=== PATIENT | male | born 1975 | race African-American/Black ===

== ENCOUNTER 2016-07-26 09:52 | Emergency (ER) | payer OTHER ==
--- NOTE | ~2016-07-26 | CT23 ---
[facility] A Service of [facility] & [facility] RADIOLOGY TEXT RESULTS PATIENT: THU NORRIS LOCATION: [facility] : 79 UNIT #: [id number] AGE: [address]: James Cooper MD SEX: M ORDER DR: [id number] [facility] [address] [place], [place] [address] [id number] E MR#: [id number] Acc #: [id number] NAME: THU NORRIS : 1975 SEX: M STUDY DATE/TIME: 07/26/2016 9:29 UNIT: [facility] ROOM: STUDY DESCRIPTION: CT Angio Neck Attending Physician: James Cooper M.D. Ordering Physician: James Cooper M.D. Primary Care Physician: Rebeka Garza A.P.R.N. MEDICAL IMAGING REPORT This report is preliminary unless electronic signature is present EXAM CT angiogram neck FINDINGS Please see CT angiogram head for results. Dictated by... Julee Cruz M.D. THIS IS AN ELECTRONICALLY VERIFIED REPORT Julee Cruz M.D. at 07/26/2016 2:49 PM Maria Fernanda TD: 07/26/2016 13:19 JOB #: [id number] MEDICAL IMAGING REPORT Page 1 of 1 COPY
--- NOTE | ~2016-07-26 | CT71 ---
[facility] A Service of [facility] RADIOLOGY TEXT RESULTS PATIENT: THU NORRIS LOCATION: [facility] : 77 UNIT #: [id number] AGE: [address]: James Cooper MD SEX: M ORDER DR: [id number] [place] [id number] [facility]. [place], [place] [address] [id number] E MR#: [id number] Acc #: [id number] NAME: THU NORRIS : 1975 SEX: M STUDY DATE/TIME: 07/26/2016 9:15 UNIT: [facility] ROOM: STUDY DESCRIPTION: CT Head Wo Contrast Attending Physician: James Cooper M.D. Ordering Physician: James Cooper M.D. Primary Care Physician: Rebeka Garza A.P.R.N. MEDICAL IMAGING REPORT This report is preliminary unless electronic signature is present EXAM CT scan of the head without contrast INDICATION Unsteady gait, blurred vision, dizziness and headache since yesterday. TECHNIQUE CT of the head was performed without contrast. This CT examination was performed with one or more of the following radiation dose reduction techniques: automatic exposure control, adjustment of mA and/or kV according to patient size, and iterative reconstruction. COMPARISON 06/20/2016. FINDINGS There is no intracranial hemorrhage, acute cortical based infarction, focal mass lesion, or hydrocephalus. The included orbits and paranasal sinuses are unremarkable. The bone windows are unremarkable. IMPRESSION No acute intracranial abnormality. Dictated by... Agustín Angelo M.D. THIS IS AN ELECTRONICALLY VERIFIED REPORT Agustín Angelo M.D. at 07/26/2016 4:29 PM ARS/mjs [facility] A Service [facility] RADIOLOGY TEXT RESULTS PATIENT: THU NORRIS LOCATION: [facility] : 77 UNIT #: [id number] AGE: [address]: James Cooper MD SEX: M ORDER DR: TD: 07/26/2016 10:34 JOB #: [id number] MEDICAL IMAGING REPORT Page 1 of 1 COPY
--- NOTE | ~2016-07-26 | CT17 ---
[facility] A Service of [facility] & [facility] RADIOLOGY TEXT RESULTS PATIENT: THU NORRIS LOCATION: [facility] : 79 UNIT #: [id number] AGE: [address]: James Cooper MD SEX: M ORDER DR: [id number] [facility] [address] [place], [place] [address] [id number] E MR#: [id number] Acc #: [id number] NAME: THU NORRIS : 1975 SEX: M STUDY DATE/TIME: 07/26/2016 9:29 UNIT: [facility] ROOM: STUDY DESCRIPTION: CT Angio Head Attending Physician: James Cooper M.D. Ordering Physician: James Cooper M.D. Primary Care Physician: Rebeka Garza A.P.R.N. MEDICAL IMAGING REPORT This report is preliminary unless electronic signature is present EXAM CT angiogram of the head and neck HISTORY Unsteady gait, blurred vision, dizziness, headache since 07/25/2016, hypertension, and elevated cholesterol. No cancer history. COMMENT CT angiography of the head and neck vessels performed during the intervenous administration of 100 mL of Isovue-370 with imaging acquired in the axial plane, followed by multiple reconstructed and reformatted images for the purpose of 3-D CT angiography of the head and neck vessels. The head CT comparison is from 07/26/2016. CT ANGIOGRAM NECK: Study is limited by patient's morbid obesity and suboptimal contrast opacification. Bovine origin of left common carotid artery. Study is limited for evaluation for great vessel disease because of the amount of artifact. There is a large amount of beam-hardening from the venous contrast inflow with the associated beam-hardening related to the patient's size. Bilaterally, the proximal common carotid arteries are not well seen, worse on the right than the left. Evaluation of the visualized right carotid system shows 0% stenosis by NASCET criteria of the right carotid bifurcation. The right carotid siphon is widely patent. Evaluation of the visualized left carotid system shows 0% stenosis by NASCET criteria of the left carotid bifurcation. There may be some mild STS. [facility] A Service of [facility] & [facility] RADIOLOGY TEXT RESULTS PATIENT: THU NORRIS [id number] [birth year] UNIT #: [id number] AGE: [address]: James Cooper MD SEX: M ORDER DR: anna. There is no gross abnormality of the left common carotid artery, though the proximal left common carotid artery is poorly seen. The left carotid siphon is widely patent. Evaluation of the vertebrals similarly limited by the patient's size, such that the proximal vertebral arteries, including their origins, are obscured. The distal 2/3 of the right vertebral artery in the neck patent. Distal 2/3 of the left vertebral artery in the neck patent. Both vertebral arteries are patent intracranially. The proximal right and left vertebral arteries cannot be evaluated accurately because of the shoulder artifact. Evaluation of the intracranial circulation shows no intracranial vascular cutoff. Again, the study is technically quite limited by the contrast opacification and morbid obesity. This study is not adequate to assess for vascular irregularity. There is a focus of contrast outpouching at the origin of the right superior cerebellar artery, about 2 mm in dimension, which might be a small aneurysm versus an infundibular type structure. I suspect there is a tiny right posterior communicator. No definite left posterior communicator or anterior communicator seen. The dural venous sinuses are patent. IMPRESSION 1. This is significantly technically limited by the patient's morbid obesity and suboptimal contrast opacification. 2. Allowing for this, by NASCET criteria, there does not appear to be hemodynamically significant narrowing of either carotid bifurcation, and both vertebral arteries are patent. Unfortunately, because of the patient's size, the proximal vessels in the neck are essentially obscured by artifact. This includes the bilateral common carotid arteries proximally, as well as the proximal vertebral arteries bilaterally. The vertebral artery origins cannot be evaluated. 3. There is no definite intracranial vascular cutoff. The study would be insensitive for areas of stenosis because of the limited quality of the exam. There is about a 2-mm focus of contrast outpouching at the origin of the right superior cerebellar artery, which might be a small aneurysm. If the patient is a candidate, it could be further characterized with an MR angiogram. I believe the patient has a tiny right posterior communicator, but no left posterior communicator or anterior communicator is seen. STAT * RESULT Dictated by... Julee Cruz M.D. THIS IS AN ELECTRONICALLY VERIFIED REPORT Julee Cruz M.D. at 07/26/2016 2:49 PM [facility] A Service of [facility] & [facility] / [facility] RADIOLOGY TEXT RESULTS PATIENT: THU NORRIS LOCATION: [facility] : 79 UNIT #: [id number] AGE: [address]: James Cooper MD SEX: M ORDER DR: Maria Fernanda TD: 07/26/2016 13:18 JOB #: [id number] MEDICAL IMAGING REPORT Page 1 of 1 COPY
--- NOTE | ~2016-07-26 | EKG ---
PATIENT: THU NORRIS UNIT #: [id number] Ventricular Rate: 82 BPM Atrial Rate: 82 BPM P-R Interval: 190 ms QRS Duration: 90 ms Q-T Interval: 414 ms QTC Calculation(Bezet): 483 ms P Birchleaf: 68 degrees Calculated R Birchleaf: 58 degrees Calculated T Birchleaf: 4 degrees Diagnosis Line: Normal sinus rhythm Diagnosis Line: Nonspecific T wave abnormality Diagnosis Line: Prolonged QT Diagnosis Line: Abnormal ECG Diagnosis Line: When compared with ECG of 14-JAN-2015 20:38, Diagnosis Line: No significant change was found Diagnosis Line: Confirmed by EMILY CEE MD ([id number]) on 07/26/2016 Diagnosis Line: 10:20:28 PM INTERPRETING MD: JAYE RODAS
[2016-07-26 08:42] LABS: BASOPHIL% 0.5 % (0-2.5); EOSINOPHIL# 0.1 X10e3 (0-0.7); EOSINOPHIL% 1.5 % (0.0-7.0); HEMATOCRIT 41.8 % (38.0-50.0); HEMOGLOBIN 14.1 gm/dL (13.0-16.0); LYMPHOCYTE# 2.4 X10e3 (1.0-3.5); LYMPHOCYTE% 31.3 % (17.0-45.0); MEAN CELL VOLUME 88.5 FL (83-96); MEAN CORPUSCULAR HEMOGLOBIN 29.9 PG (28-34); MEAN CORPUSCULAR HGB CONC 33.8 g/dL (30-36); MEAN PLATELET VOLUME 7.6 FL (6.5-11.5); MONOCYTE# 0.7 X10e3 (0-1.0); MONOCYTE% 8.9 % (3.0-12.0); NEUTROPHIL# 4.4 X10e3 (1.5-7.1); NEUTROPHIL% 57.8 % (40-75); PLATELET COUNT 305 X10e3 (140-420); RED BLOOD COUNT 4.72 X10e (3.90-5.60); RED CELL DISTRIBUTION WIDTH 14.7 % (11.0-15.5); WHITE BLOOD COUNT 7.6 X10e3 (4.0-10.5)
[2016-07-26 08:46] LABS: DIFF IND NO
[2016-07-26 08:57] LABS: INR 0.9; PARTIAL THROMBOPLASTIN TIME 27.8 SECONDS (23.5-31.3); PROTHROMBIN TIME (PATIENT) 9.7 SECONDS (9.6-11.5)
[2016-07-26 09:05] LABS: ALBUMIN SERUM 3.9 g/dL (3.5-5.0); ALKALINE PHOSPHATASE 69 U/L (32-92); ALT (SGPT) 23 U/L (10-40); AST (SGOT) 21 U/L (10-42); BILIRUBIN, DIRECT <0.1 mg/dL (0.0-0.2); BILIRUBIN,INDIRECT 0.5 mg/dL (0.0-0.9); BILIRUBIN,TOTAL 0.6 mg/dL (0.2-2.0); BLOOD UREA NITROGEN 11 mg/dL (9-23); BUN/CREATININE RATIO 13.75; CALCIUM SERUM 8.7 mg/dL (8.4-10.2); CARBON DIOXIDE 29 mmol/L (22-31); CHLORIDE 101 mmol/L (100-111); CREATININE SERUM 0.8 mg/dL (0.6-1.4); GLOM FILT RATE Estimated 130.5 mL/min (>60); GLUCOSE FASTING 121 mg/dL (70-110); POTASSIUM 3.1 mmol/L (3.5-5.1); PROTEIN TOTAL SERUM 7.9 g/dL (6.0-8.3); SODIUM 139 mmol/L (135-145)
[~2016-07-26 09:52] MED LIST: ACETAMINOPHEN650 M1 PO; AMOXICILLIN PO; ASPIRIN81 M2 PO; DOXYCYCLINE HY100 M3 PO; FLEXERIL10 M1 PO; IBUPROFEN800 MG PO; LACRI-LUBE NP OI1 UD OD; LIPITOR PO; NO MEDICATIONS; NORVASC PO; PREDNISONE10 MG PO; VICODIN PO; VOLTAREN75 MG PO; ZESTORETIC 20-1 EAC1 PO; ZOVIRAX400 MG PO
== END 2016-07-26 14:15 | disposition home or self-care (01) ==
LOC: CED 09:52
PROVIDERS: Emergency Medicine
DX: R42 Dizziness and giddiness (principal); E87.6 Hypokalemia; E78.5 Hyperlipidemia, unspecified; Z98.890 Other specified postprocedural states
CPT/HCPCS: 36415; 70450; 70496; 70498; 80048; 80076; 82947; 85025; 85610; 85730; 93005; 99284; Q9967

== ENCOUNTER 2016-09-20 12:28 | Emergency (ER) | payer OTHER ==
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
== END 2016-09-20 16:19 | disposition home or self-care (01) ==
LOC: CED 12:28 → CFTX 12:28
DX: S20.212A Contusion of left front wall of thorax, initial encounter (principal); S20.211A Contusion of right front wall of thorax, initial encounter; I10 Essential (primary) hypertension; V49.40XA Driver injured in collision with unspecified motor vehicles in traffic accident, initial encounter
CPT/HCPCS: 70450; 71020; 72040; 72072; 99284

== ENCOUNTER 2016-09-27 22:18 | Emergency (ER) | payer OTHER ==
--- NOTE | ~2016-09-27 | CT4 ---
[facility] A Service of [facility] RADIOLOGY TEXT RESULTS PATIENT: THU NORRIS LOCATION: [facility] : 79 UNIT #: [id number] AGE: [address]: LOPEZ ULLOA SEX: M ORDER DR: [id number] [place] [id number] [facility]. [place], [place] [address] [id number] E MR#: [id number] Acc #: [id number] NAME: THU NORRIS : 1975 SEX: M STUDY DATE/TIME: 09/28/2016 2:48 UNIT: [facility] ROOM: STUDY DESCRIPTION: CT Abd and Pelv Wo Cont Attending Physician: Lopez Ulloa Aprn Ordering Physician: Lopez Ulloa Aprn Primary Care Physician: Rebeka Garza A.P.R.N. MEDICAL IMAGING REPORT This report is preliminary unless electronic signature is present EXAM CT abdomen and pelvis without contrast INDICATIONS Right flank pain since yesterday. PROCEDURE Unenhanced CT of the abdomen and pelvis. This CT exam was performed with one or more of the following radiation dose reduction techniques: automatic exposure control, adjustment of mA and/or kV according to patient size, and iterative reconstruction. COMPARISON None FINDINGS ABDOMEN WITHOUT CONTRAST: Included lung bases are clear. Liver enlarged, measuring 20 cm. Hepatic steatosis. Spleen, adrenal glands, pancreas, gallbladder unremarkable. Bowel loops nondilated. Moderate colonic stool. Normal appendix. No radiodense urinary system calculus or hydronephrosis. PELVIS WITHOUT CONTRAST: No radiodense bladder calculus. No pelvic mass. No aggressive-appearing bone lesion. IMPRESSION 1. No acute findings. No radiodense urinary system calculus or hydronephrosis. 2. Hepatomegaly with steatosis. 3. Normal appendix. [facility] A Service of [facility] RADIOLOGY TEXT RESULTS PATIENT: THU NORRIS LOCATION: [facility] : 79 UNIT #: [id number] AGE: [address]: LOPEZ ULLOA SEX: M ORDER DR: Dictated by... Tim Moe M.D. THIS IS AN ELECTRONICALLY VERIFIED REPORT Tim Moe M.D. at 09/28/2016 9:52 PM AYALA/eric TD: 09/28/2016 12:17 JOB #: [id number] MEDICAL IMAGING REPORT Page 1 of 1 COPY
[2016-09-28 01:12] LABS: URINE SOURCE CLEAN CATCH
[2016-09-28 01:15] LABS: URINE APPEARANCE CLEAR; URINE BILIRUBIN NEG (NEG); URINE BLOOD 1+ (NEG); URINE COLOR YELLOW; URINE GLUCOSE NEG (NEG); URINE KETONE NEG (NEG); URINE LEUKOCYTE ESTERASE NEG (NEG); URINE NITRATE NEG (NEG); URINE PROTEIN 1+ (NEG); URINE SPECIFIC GRAVITY 1.021 (1.003-1.035)
[2016-09-28 01:18] LABS: URINE BACTERIA AUWI NEG (NEGATIVE); URINE SQUAMOUS EPITHELIAL CELL NONE SEEN /[HPF]; UWBCS1 AUWI 0-2 (0-5)
[2016-09-28 01:21] LABS: CULTURE INDICATED? NO
[2016-09-28 05:47] LABS: BASOPHIL% 0.5 % (0-2.5); EOSINOPHIL# 0.2 X10e3 (0-0.7); EOSINOPHIL% 2.2 % (0.0-7.0); HEMOGLOBIN 12.5 gm/dL (13.0-16.0); LYMPHOCYTE# 2.3 X10e3 (1.0-3.5); LYMPHOCYTE% 34.8 % (17.0-45.0); MEAN CELL VOLUME 89.2 FL (83-96); MEAN CORPUSCULAR HEMOGLOBIN 29.4 PG (28-34); MEAN PLATELET VOLUME 8.1 FL (6.5-11.5); MONOCYTE# 0.6 X10e3 (0-1.0); MONOCYTE% 8.4 % (3.0-12.0); NEUTROPHIL# 3.6 X10e3 (1.5-7.1); NEUTROPHIL% 54.1 % (40-75); PLATELET COUNT 267 X10e3 (140-420); RED BLOOD COUNT 4.26 X10e (3.90-5.60); RED CELL DISTRIBUTION WIDTH 14.6 % (11.0-15.5); WHITE BLOOD COUNT 6.7 X10e3 (4.0-10.5)
[2016-09-28 05:48] LABS: DIFF IND NO
[2016-09-28 06:15] LABS: ALBUMIN SERUM 3.6 g/dL (3.5-5.0); BILIRUBIN, DIRECT 0.1 mg/dL (0.0-0.2); BILIRUBIN,INDIRECT 0.2 mg/dL (0.0-0.9); BILIRUBIN,TOTAL 0.3 mg/dL (0.2-2.0); BUN/CREATININE RATIO 13.33; CALCIUM SERUM 8.5 mg/dL (8.4-10.2); CREATININE SERUM 0.9 mg/dL (0.6-1.4); GLOM FILT RATE Estimated 124.3 mL/min (>60); PROTEIN TOTAL SERUM 6.8 g/dL (6.0-8.3)
== END 2016-09-28 07:05 | disposition home or self-care (01) ==
LOC: CED 22:18
PROVIDERS: Nurse Practitioner Family
DX: R10.9 Unspecified abdominal pain (principal); M54.5 Low back pain; I10 Essential (primary) hypertension
CPT/HCPCS: 36415; 74176; 80048; 80076; 81003; 85025; 99284; J1885